=== PATIENT | female | born 1995 | race Asian ===

== ENCOUNTER → 2018-02-24 00:11 | Emergency (ER) | payer SELFPAY ==
--- NOTE | 2018-02-24 00:41 | ED ---
Adult Trauma - HPI Summary HPI Summary: Patient had fall from sled tonight with mild dizziness and right thumb DIP pain and abrasion. Denies head injury, LOC, WEBBER, N/V, vision change, oral trauma, neck pain, any other pain or symptoms. Patient ambulatory on scene. - History of Current Complaint Chief Complaint: EDExtremityUpper Stated Complaint: HEAD INJURY Time Seen by Provider: 02/24/18 00:24 Hx Obtained From: Patient Mechanism of Injury: Fall Ambulatory at the Scene: Yes Loss of Consciousness: no loss of consciousness Force: Low Restraints: None Onset/Duration: Started Hours Ago Onset of Pain: Immediate Onset Severity: Moderate Current Severity: Moderate Pain Intensity: 5 Pain Scale Used: 0-10 Numeric Location: Extremities Character: Aching Aggravating Factor(s): Movement Alleviating Factor(s): Nothing Associated Signs & Symptoms: Positive: Negative - Allergy/Home Medications Allergies/Adverse Reactions: Allergies Allergy/AdvReac Type Severity Reaction Status Date / Time No Known Allergies Allergy Verified 02/24/18 00:22 Home Medications: Home Medications NK [No Home Medications Reported] 02/24/18 [History Confirmed 02/24/18] PMH/Surg Hx/FS Hx/Imm Hx Endocrine/Hematology History: Denies: Hx Anticoagulant Therapy Cardiovascular History: Denies: Hx Cardiac Arrest History: Denies: Hx Dialysis Neurological History: Denies: Hx CVA Infectious Disease History: No Infectious Disease History: Denies: Traveled Outside the in Last 30 Days - Social History Occupation: Student Alcohol Use: Occasionally Substance Use Type: Reports: None Smoking Status (MU): Never Smoked Tobacco Review of Systems Constitutional: Negative Eyes: Negative ENT: Negative Cardiovascular: Negative Respiratory: Negative Gastrointestinal: Negative Genitourinary: Negative Positive: Arthralgia Positive: Bruising Neurological: Negative Psychological: Normal All Other Systems Reviewed And Are Negative: Yes Physical Exam - Summary Physical Exam Summary: Neuro exam normal. Abrasion to DIP of right thumb. Patient has full flexion and extension of other fingers of right hand, full extension and flexion of right wrist and right elbow and right shoulder without pain. No facial, head, oral trauma noted. Patient moves right bilateral lower extremities freely. Triage Information Reviewed: Yes Vital Signs On Initial Exam: Initial Vitals Temp Pulse Resp BP Pulse Ox 98.4 F 67 16 109/70 100 02/24/18 00:19 02/24/18 00:19 02/24/18 00:19 02/24/18 00:19 02/24/18 00:19 Vital Signs Reviewed: Yes Appearance: Positive: Well-Appearing Skin: Positive: Warm Head/Face: Positive: Normal Head/Face Inspection Eyes: Positive: Normal ENT: Positive: Normal ENT inspection Neck: Positive: Supple Respiratory/Lung Sounds: Positive: Clear to Auscultation Cardiovascular: Positive: Normal Abdomen Description: Positive: Nontender Musculoskeletal: Positive: Normal Neurological: Positive: Normal Psychiatric: Positive: Normal AVPU Assessment: Alert - [place] Coma Scale Best Eye Response: 4 - Spontaneous Best Motor Response: 6 - Obeys Commands Best Verbal Response: 5 - Oriented Coma Scale Total: 15 Diagnostics - Vital Signs Vital Signs Temp Pulse Resp BP Pulse Ox 02/24/18 00:19 98.4 F 67 16 109/70 100 - Laboratory Lab Statement: Any lab studies that have been ordered have been reviewed, and results considered in the medical decision making process. Adult Trauma Course/Dx - Course Course Of Treatment: Patient had fall from sled tonight with mild dizziness and right thumb DIP pain and abrasion. Denies head injury, LOC, WEBBER, N/V, vision change, oral trauma, neck pain, any other pain or symptoms. Patient ambulatory on scene. Physical exam:Neuro exam normal. Abrasion to DIP of right thumb. Patient has full flexion and extension of other fingers of right hand, full extension and flexion of right wrist and right elbow and right shoulder without pain. No facial, head, oral trauma noted. Patient moves right bilateral lower extremities freely. Vital signs within normal limits. X-ray negative. Wound abrasion on right thumb cleaned. - Diagnoses Provider Diagnoses: Thumb pain Discharge - Sign-Out/Discharge Documenting (check all that apply): Patient Departure - Discharge Plan Condition: Stable Disposition: HOME Patient Education Materials: Finger Sprain (ED) Referrals: No Primary Care Phys,NOPCP [Primary Care Provider] - [facility] [Outside] Additional Instructions: Ice, rest, ibuprofen for thumb pain. Keep abrasion clean and dry. Return to the ED for any new or worsening symptoms - Billing Disposition and Condition Condition: STABLE Disposition: Home
[2018-02-24 01:44] VITALS: BP 96/64
== END | disposition home or self-care (01) ==
LOC: ED 00:11
DX: M79.644 Pain in right finger(s) (principal); S60.311A Abrasion of right thumb, initial encounter; W19.XXXA Unspecified fall, initial encounter; Y93.23 Activity, snow (alpine) (downhill) skiing, snowboarding, sledding, tobogganing and snow tubing; Y92.9 Unspecified place or not applicable; R42 Dizziness and giddiness
CPT/HCPCS: 99281